=== PATIENT | female | born 1985 | race African-American/Black ===

== ENCOUNTER 2022-11-07 15:42 | Emergency (ER) | payer MEDICAID ==
[~2022-11-07] VITALS: Ht 175.3 cm; Wt 76.0 kg
[2022-11-07 15:47] VITALS: TEMP 98.2; O2SAT 100
[2022-11-07] MEDS ORDERED: IBUPROFEN 600MG TABLET PO ONE (17:00)
[2022-11-07 17:23] VITALS: BP 146/104; PULSE 86; RESP 16
[2022-11-07] MEDS ORDERED: IBUP-2029 MT (17:32)
== END 2022-11-07 19:02 | disposition home or self-care (01) ==
LOC: ER 15:42
DX: M79.602 Pain in left arm (principal); V49.49XA Driver injured in collision with other motor vehicles in traffic accident, initial encounter; Y93.89 Activity, other specified; Y92.89 Other specified places as the place of occurrence of the external cause; Y99.8 Other external cause status
CPT/HCPCS: 73030; 73090; 73110; 73130; 81025; 99284